=== PATIENT | male | born 1990 | race Two or more races ===

== ENCOUNTER 2017-08-06 14:57 | Emergency (ER) | payer SELFPAY ==
[2017-08-06 16:39] VITALS: BP 146/77
[2017-08-06] MEDS ORDERED: KETOROLAC TROMETH 60MG/2ML VIAL IM ONE (17:30)
[2017-08-06] MEDS ORDERED: AMMONIA 0.33 ML INHALANT IN ONE (22:16)
== END 2017-08-06 18:00 | disposition home or self-care (01) ==
LOC: EDBD 14:57 → ER 15:11
DX: S60.512A Abrasion of left hand, initial encounter (principal); S80.211A Abrasion, right knee, initial encounter; V49.59XA Passenger injured in collision with other motor vehicles in traffic accident, initial encounter; Y93.89 Activity, other specified; Y99.8 Other external cause status; Y92.410 Unspecified street and highway as the place of occurrence of the external cause
CPT/HCPCS: 73130; 96372; 99284; J1885